=== PATIENT | female | born 1940 | race Two or more races ===

== ENCOUNTER 2018-04-20 17:56 | Emergency (ER) | payer OTHER ==
[~2018-04-20] VITALS: Ht 157.5 cm; Wt 63.5 kg
[~2018-04-20 17:56] MED LIST: LOSARTAN POTASS50 MG; METFORMIN HCL500 MG; TOPROL XL50 M1
== END 2018-04-20 21:59 | disposition home or self-care (01) ==
LOC: ER 17:56
DX: K29.60 Other gastritis without bleeding (principal); R51 Headache; R42 Dizziness and giddiness

== ENCOUNTER 2018-04-21 20:32 | Emergency (ER) | payer OTHER ==
[~2018-04-21] VITALS: Ht 157.5 cm; Wt 62.6 kg
[2018-04-22] MEDS ORDERED: ZANTAC150 MG PO (10:05)
[2018-04-22] MEDS ORDERED: INTESTINEX680 M1 PO (10:05)
[2018-04-22] MEDS ORDERED: CIPRO500 MG PO (10:05)
== END 2018-04-22 10:17 | disposition home or self-care (01) ==
LOC: ER 20:32
DX: R11.11 Vomiting without nausea (principal); J11.1 Influenza due to unidentified influenza virus with other respiratory manifestations

== ENCOUNTER 2019-12-25 00:57 | Emergency (ER) | payer OTHER ==
[~2019-12-25] VITALS: Ht 157.5 cm; Wt 64.4 kg
[~2019-12-25 00:57] MED LIST changes: +CIPRO500 MG PO; +INTESTINEX680 M1 PO; +ZANTAC150 MG PO
[2019-12-25] MEDS ORDERED: TOPROL XL100 M1 (01:06)
[2019-12-25] MEDS ORDERED: MICARDIS40 MG (01:06)
[2019-12-25] MEDS ORDERED: FORTAMET500 MG (01:06)
[2019-12-25] MEDS ORDERED: ASA325 MG (01:07)
== END 2019-12-25 06:51 | disposition home or self-care (01) ==
LOC: ER 00:57 → CPU-OBS 01:17 → ER 01:17
DX: R07.89 Other chest pain (principal)

== ENCOUNTER → 2021-06-11 | Emergency (ER) | payer OTHER ==
[~2021-06-11] VITALS: Ht 157.5 cm; Wt 63.5 kg
[~2021-06-11] MED LIST changes: +ADULT LOW DOSE81 M1; +ASA325 MG; +FORTAMET500 MG; +MICARDIS40 MG; +TOPROL XL100 M1
== END | disposition designated cancer center or children's hospital (05) ==
LOC: ER 15:23 → CPU-OBS 16:23
DX: R07.89 Other chest pain (principal); I16.0 Hypertensive urgency; I10 Essential (primary) hypertension